=== PATIENT | female | born 1975 | race African-American/Black ===

== ENCOUNTER → 2023-12-06 | Outpatient (CLI) | payer BC ==
[2023-12-06 08:37] LABS: BASOPHILS % 0.9 % (0.0-2.0); DIFFERENTIAL COMMENT 0; HEMATOCRIT. 34.3 % (36.0-48.0); LYMPHOCYTES % 25.4 % (20.0-50.0); MEAN CORPUSCULAR VOLUME 78.1 fL (81.0-99.0); MEAN PLATELET VOLUME 8.8 fl (7.4-10.4); MONOCYTES % 6.1 % (2.0-8.0); NEUTROPHILS % 63.6 % (40.0-76.0); PLATELET 391 x1000/uL (130-400); RED BLOOD CELL COUNT 4.39 mill/uL (4.2-5.4); RED CELL DISTRIBUTION WIDTH 15.8 % (11.6-14.6); WHITE BLOOD COUNT 9.1 x1000/uL (4.5-11.0)
[2023-12-06 08:47] LABS: CHLORIDE 103 mEq/L (98-107); POTASSIUM 3.3 mEq/L (3.5-5.1); SODIUM 136 mEq/L (136-145)
[2023-12-06 08:48] LABS: CALCIUM 9.6 mg/dL (8.7-10.4); CARBON DIOXIDE 28 mEq/L (21-32)
[2023-12-06 08:53] LABS: CREATININE 0.7 mg/dL (0.6-1.0); GLUCOSE 176 mg/dL (70-105); IRON 24 ug/dL (50-170)
[2023-12-06 08:54] LABS: LDL CHOLESTEROL 100 mg/dL (5-100); TRIGLYCERIDE 74 mg/dL (0-150); UREA NITROGEN BLOOD 11 mg/dL (9-23)
[2023-12-06 08:55] LABS: ALANINE AMINOTRANSFERASE 18 IU/L (10-49); ALBUMIN 4.8 g/dL (3.2-4.8); ASPARTATE AMINOTRANSFERASE 22 IU/L (<34); CHOLESTEROL 177 mg/dL (<200); HDL CHOLESTEROL 75 mg/dL (>65)
[2023-12-06 08:56] LABS: BILIRUBIN TOTAL 0.5 mg/dL (0.1-1.0); PROTEIN TOTAL 8.4 g/dL (6.0-8.3); TOTAL IRON BINDING CAPACITY 389 ug/dl (250-425)
[2023-12-06 08:57] LABS: T4 FREE 0.97 ng/dL (0.89-1.76)
[2023-12-06 08:58] LABS: THYROID STIMULATING HORMONE 2.59 uIU/mL (0.55-4.78)
[2023-12-07 13:11] LABS: *CREATININE RANDOM URINE 108.1 mg/dL (Not Estab.); MICROALBUMIN RANDOM URINE 11.3 ug/mL (Not Estab.)
== END | disposition home or self-care (01) ==
LOC: LAB 07:45
PROVIDERS: ATTEND Obstetrics & Gynecology
DX: E11.9 Type 2 diabetes mellitus without complications (principal)
CPT/HCPCS: 36415; 80053; 80061; 82043; 82570; 82728; 83036; 83519; 83540; 83550; 84439; 84443; 84681; 85025

== ENCOUNTER → 2024-01-04 | Outpatient (CLI) | payer BC | END | disposition home or self-care (01) | LOC: MAMMO 08:35 | PROVIDERS: ATTEND Obstetrics & Gynecology | DX: Z12.31 Encounter for screening mammogram for malignant neoplasm of breast (principal) | CPT/HCPCS: 77063; 77067 ==

== ENCOUNTER → 2024-08-19 | Outpatient (CLI) | payer BC | END | disposition home or self-care (01) | LOC: US 09:36 | PROVIDERS: ATTEND Obstetrics & Gynecology | DX: R92.8 Other abnormal and inconclusive findings on diagnostic imaging of breast (principal) | CPT/HCPCS: 76641 ==

== ENCOUNTER 2024-11-06 08:25 | Inpatient (IN) | payer BC ==
[2024-11-06] VITALS (33 sets, daily range): BP systolic 79–158; BP diastolic 52–146; PULSE 85–104; RESP 17–29; TEMP 35.4–36.6; O2SAT 98–100
[~2024-11-06] VITALS: Ht 160.8 cm; Wt 78.0 kg
[2024-11-06] MEDS: SODIUM CHLORIDE 0.9% 1,000 ML IV ONE ×2 (09:01→10:00)
[2024-11-06 09:21] LABS: HEMATOCRIT. 40.8 % (36.0-48.0); HEMOGLOBIN. 11.2 g/dL (12.0-16.0); MEAN CORPUSCULAR HEMOGLOBIN 22.1 pg (28.0-32.0); MEAN CORPUSCULAR HGB CONC 27.5 g/dL (31.0-37.0); MEAN CORPUSCULAR VOLUME 80.3 fL (81.0-99.0); PLATELET 540 x1000/uL (130-400); RED BLOOD CELL COUNT 5.08 mill/uL (4.2-5.4); RED CELL DISTRIBUTION WIDTH 19.1 % (11.6-14.6); WHITE BLOOD COUNT 39.6 x1000/uL (4.5-11.0)
[2024-11-06 09:23] LABS: DIFFERENTIAL COMMENT 1
[2024-11-06 09:34] LABS: CHLORIDE 94 mEq/L (98-107); POTASSIUM 5.1 mEq/L (3.5-5.1); SODIUM 128 mEq/L (136-145)
[2024-11-06 09:35] LABS: CALCIUM 9.8 mg/dL (8.7-10.4)
[2024-11-06 09:40] LABS: UREA NITROGEN BLOOD 21 mg/dL (9-23)
[2024-11-06 09:43] LABS: CREATININE 1.7 mg/dL (0.6-1.0); TROPONIN I HIGH SENSITIVITY < 4 ng/L (3.0-34)
[2024-11-06 09:46] LABS: CARBON DIOXIDE < 10 mEq/L (21-32)
[2024-11-06 09:47] LABS: GLUCOSE 647 mg/dL (70-105)
[2024-11-06 09:55] LABS: BETA HYDROXYBUTYRATE 11.5 mMol/L (0.0-0.3)
[2024-11-06 10:01] LABS: BG BASE EXCESS -31.6 mmol/L (-2.0-3.0); BG DEOXYHEMOGLOBIN 1.4 % (0.0-5.0); BG FRACTION INSPIRED OXYGEN 21; BG HCO3 ACT 1.8 mmol/L (21.0-28.0); BG METHEMOGLOBIN 0.3 % (0.5-1.5); BG OXYGEN SATURATION 98.6 % (94.0-98.0); BG OXYHEMOGLOBIN 97.3 % (94.0-98.0); BG PCO2 12.4 mmHg (32.0-45.0); BG PH 6.787 (7.350-7.450); BG PO2 155.6 mmHg (83.0-108.0); BG SAMPLE SITE RIGHT RADIAL; BG TOTAL HEMOGLOBIN 11.1 g/dL (12.0-16.0); BG VENT MODE ROOM AIR
[2024-11-06] MEDS ORDERED: POTASSIUM CHLORIDE 40 MEQ in SODIUM CHLORIDE 0.9% 230 ML IV PRN ×2 (10:15→10:45)
[2024-11-06] MEDS ORDERED: SODIUM PHOSPHATE 15 MMOL in SODIUM CHLORIDE 0.9% 245 ML IV PRN (10:15)
[2024-11-06] MEDS ORDERED: KCL 20MEQ/100ML PREMIX 100 ML IV PRN (10:15)
[2024-11-06] MEDS ORDERED: DEXTROSE 50% WATER 50ML SYRINGE IV PRN ×2 (10:15→10:45)
[2024-11-06] MEDS ORDERED: DEXT 5%/0.9% NACL 1,000 ML IV SCH (10:15)
[2024-11-06] MEDS ORDERED: MAGNESIUM 2 G PREMIX 50 ML IV PRN (10:15)
[2024-11-06] MEDS ORDERED: SODIUM CHLORIDE 0.9% 1,000 ML IV SCH ×2 (10:15→14:15)
[2024-11-06] MEDS ORDERED: VANCOMYCIN 1G PREMIX 200 ML IV ONE (10:15)
[2024-11-06] MEDS ORDERED: INSULIN REGULAR (DRIP) 100 UNITS in SODIUM CHLORIDE 0.9% 99 ML IV SCH (10:15)
[2024-11-06] MEDS ORDERED: BLOOD SUGAR DIAGNOSTIC STRIP TEST PRN ×2 (10:15→10:45)
[2024-11-06] MEDS ORDERED: BLOOD SUGAR DIAGNOSTIC STRIP TEST SCH (10:15)
[2024-11-06 10:31] LABS: ANISOCYTOSIS 2+; PLATELET ESTIMATE INCREASED
[2024-11-06] MEDS ORDERED: HYDROCODONE/ACETAMINOPHEN 5/325MG TABLET PO PRN (10:45)
[2024-11-06] MEDS ORDERED: LIDOCAINE HCL 1% 10 MG/ML 10ML VIAL ONE (10:49)
[2024-11-06] MEDS ORDERED: NALOXONE HCL 0.4MG/ML VIAL IV PRN (11:00)
[2024-11-06] MEDS: SODIUM CHLORIDE 0.9% (SEPSIS BOLUS) IV ONE (11:01)
[2024-11-06 11:13] LABS: CHLORIDE 98 mEq/L (98-107); POTASSIUM 5.1 mEq/L (3.5-5.1); SODIUM 131 mEq/L (136-145)
[2024-11-06 11:14] LABS: CALCIUM 8.7 mg/dL (8.7-10.4)
[2024-11-06] MEDS: BLOOD SUGAR DIAGNOSTIC STRIP TEST SCH (11:14)
[2024-11-06] MEDS: INSULIN REGULAR 100U/100ML PMX 100 ML IV SCH ×2 (11:14→22:21)
[2024-11-06] MEDS: SODIUM CHLORIDE 0.9% 1,000 ML IV SCH (11:16)
[2024-11-06 11:19] LABS: CREATININE 1.5 mg/dL (0.6-1.0); UREA NITROGEN BLOOD 22 mg/dL (9-23)
[2024-11-06 11:21] LABS: PHOSPHORUS 5.8 mg/dL (2.5-4.9)
[2024-11-06 11:48] LABS: CARBON DIOXIDE < 10 mEq/L (21-32)
[2024-11-06 11:52] LABS: GLUCOSE 551 mg/dL (70-105)
[2024-11-06 12:56] LABS: BG BASE EXCESS -32.4 mmol/L (-2.0-3.0); BG CARBOXYHEMOGLOBIN 1.7 % (0.5-1.5); BG DEOXYHEMOGLOBIN 1.1 % (0.0-5.0); BG FRACTION INSPIRED OXYGEN 21; BG HCO3 ACT 1.4 mmol/L (21.0-28.0); BG METHEMOGLOBIN 0.3 % (0.5-1.5); BG OXYGEN SATURATION 98.9 % (94.0-98.0); BG OXYHEMOGLOBIN 96.9 % (94.0-98.0); BG PH 6.763 (7.350-7.450); BG PO2 154.2 mmHg (83.0-108.0); BG SAMPLE SITE LEFT RADIAL; BG TOTAL HEMOGLOBIN 10.7 g/dL (12.0-16.0); BG VENT MODE ROOM AIR
[2024-11-06] MEDS: VANCOMYCIN 1.25GM/250ML 250 ML IV SCH (13:24)
[2024-11-06] MEDS: ENOXAPARIN 40MG/0.4ML SYR SUBCUT SCH (13:25)
[2024-11-06 13:58] LABS: CHLORIDE 105 mEq/L (98-107); POTASSIUM 4.7 mEq/L (3.5-5.1); SODIUM 136 mEq/L (136-145)
[2024-11-06] MEDS ORDERED: PIPERACILLIN/TAZO 3.375G/100ML 100 ML IV SCH (14:00)
[2024-11-06 14:06] LABS: PHOSPHORUS 4.7 mg/dL (2.5-4.9)
[2024-11-06 14:31] LABS: CARBON DIOXIDE < 10 mEq/L (21-32)
[2024-11-06] MEDS: SODIUM BICARBONATE 8.4% 50MEQ/50ML SYR IV NR (14:32)
[2024-11-06] MEDS ORDERED: SODIUM BICARBONATE 100 MEQ in SODIUM CHLORIDE 0.45% 900 ML IV SCH (15:00)
[2024-11-06] MEDS: KCL 20MEQ/100ML PREMIX 100 ML IV SCH (15:57)
[2024-11-06] MEDS: SODIUM BICARBONATE 50 MEQ in SODIUM CHLORIDE 0.45% 950 ML IV SCH (16:58)
[2024-11-06 17:39] LABS: CALCIUM 7.7 mg/dL (8.7-10.4); CHLORIDE 108 mEq/L (98-107); POTASSIUM 3.5 mEq/L (3.5-5.1); SODIUM 142 mEq/L (136-145)
[2024-11-06 17:44] LABS: CREATININE 1.3 mg/dL (0.6-1.0); GLUCOSE 353 mg/dL (70-105)
[2024-11-06 17:45] LABS: LDL CHOLESTEROL 74 mg/dL (5-100); TRIGLYCERIDE 209 mg/dL (0-150); UREA NITROGEN BLOOD 21 mg/dL (9-23)
[2024-11-06 17:46] LABS: ALANINE AMINOTRANSFERASE 49 IU/L (10-49); ALBUMIN 3.8 g/dL (3.2-4.8); ASPARTATE AMINOTRANSFERASE 175 IU/L (<34); CHOLESTEROL 152 mg/dL (<200); CREATINE KINASE 98 IU/L (34-145); HDL CHOLESTEROL 35 mg/dL (>65)
[2024-11-06 17:47] LABS: BILIRUBIN DIRECT 0.1 mg/dL (<=3.0); BILIRUBIN TOTAL 0.3 mg/dL (0.1-1.0); PHOSPHORUS 2.8 mg/dL (2.5-4.9); PROTEIN TOTAL 6.9 g/dL (6.0-8.3)
[2024-11-06 18:05] LABS: CARBON DIOXIDE < 10 mEq/L (21-32)
[2024-11-06 18:21] LABS: BG BASE EXCESS -26.8 mmol/L (-2.0-3.0); BG CARBOXYHEMOGLOBIN 1.1 % (0.5-1.5); BG DEOXYHEMOGLOBIN 0.7 % (0.0-5.0); BG FRACTION INSPIRED OXYGEN 21; BG HCO3 ACT 2.6 mmol/L (21.0-28.0); BG METHEMOGLOBIN 0.3 % (0.5-1.5); BG OXYGEN SATURATION 99.3 % (94.0-98.0); BG OXYHEMOGLOBIN 97.9 % (94.0-98.0); BG PH 6.992 (7.350-7.450); BG PO2 162.7 mmHg (83.0-108.0); BG SAMPLE SITE LEFT RADIAL; BG TOTAL HEMOGLOBIN 9.7 g/dL (12.0-16.0); BG VENT MODE ROOM AIR
[2024-11-06] MEDS: DEXT 5%/0.9% NACL 1,000 ML IV SCH (18:41)
[2024-11-06] MEDS: KCL 20MEQ/100ML PREMIX 100 ML IV PRN (18:41)
[2024-11-06] MEDS ORDERED: SODIUM CHLORIDE 0.45% 1,000 ML IV SCH (20:00)
[2024-11-06] MEDS ORDERED: INSULIN REGULAR 100U/100ML PMX 100 ML IV SCH (22:15)
[2024-11-06 22:39] LABS: CHLORIDE 111 mEq/L (98-107); POTASSIUM 3.5 mEq/L (3.5-5.1); SODIUM 143 mEq/L (136-145)
[2024-11-06 22:40] LABS: CALCIUM 7.4 mg/dL (8.7-10.4)
[2024-11-06 22:45] LABS: CREATININE 1.2 mg/dL (0.6-1.0); GLUCOSE 255 mg/dL (70-105); UREA NITROGEN BLOOD 22 mg/dL (9-23)
[2024-11-06 22:47] LABS: PHOSPHORUS 1.3 mg/dL (2.5-4.9)
[2024-11-06 22:56] LABS: CARBON DIOXIDE < 10 mEq/L (21-32)
[2024-11-07] VITALS (96 sets, daily range): BP systolic 93–149; BP diastolic 72–103; PULSE 101–121; RESP 13–47; TEMP 34.3–36.9; O2SAT 95–100
[2024-11-07] MEDS: SODIUM PHOSPHATE 15 MMOL in SODIUM CHLORIDE 0.9% 245 ML IV PRN (01:18)
[2024-11-07] MEDS: ONDANSETRON HCL 4MG/2ML INJ IV PRN (03:22)
[2024-11-07 06:33] LABS: CHLORIDE 110 mEq/L (98-107); POTASSIUM 3.7 mEq/L (3.5-5.1); SODIUM 141 mEq/L (136-145)
[2024-11-07 06:34] LABS: CALCIUM 7.4 mg/dL (8.7-10.4)
[2024-11-07 06:39] LABS: CREATININE 1.3 mg/dL (0.6-1.0); GLUCOSE 207 mg/dL (70-105); UREA NITROGEN BLOOD 25 mg/dL (9-23)
[2024-11-07 08:18] LABS: CARBON DIOXIDE < 10 mEq/L (21-32); PHOSPHORUS 0.6 mg/dL (2.5-4.9)
[2024-11-07] MEDS: PANTOPRAZOLE SODIUM 40 MG/VIAL IV SCH (08:24)
[2024-11-07 08:25] LABS: BG BASE EXCESS -15.1 mmol/L (-2.0-3.0); BG CARBOXYHEMOGLOBIN 0.3 % (0.5-1.5); BG DEOXYHEMOGLOBIN 5.3 % (0.0-5.0); BG FRACTION INSPIRED OXYGEN 21; BG HCO3 ACT 8.6 mmol/L (21.0-28.0); BG METHEMOGLOBIN 0.3 % (0.5-1.5); BG OXYGEN SATURATION 94.7 % (94.0-98.0); BG OXYHEMOGLOBIN 94.1 % (94.0-98.0); BG PCO2 16.1 mmHg (32.0-45.0); BG PH 7.346 (7.350-7.450); BG PO2 68.9 mmHg (83.0-108.0); BG SAMPLE SITE RIGHT RADIAL; BG TOTAL HEMOGLOBIN 9.3 g/dL (12.0-16.0); BG VENT MODE ROOM AIR
[2024-11-07] MEDS ORDERED: SODIUM BICARBONATE 8.4% 50MEQ/50ML SYR IV SCH (08:45)
[2024-11-07] MEDS: ENOXAPARIN 30MG/0.3ML SYR SUBCUT SCH (08:55)
[2024-11-07] MEDS: POTASSIUM PHOSPHATE 20 MMOL in DEXT 5% WATER 243.3333 ML IV ONE (09:21)
[2024-11-07 09:29] LABS: HEMATOCRIT. 30.9 % (36.0-48.0); HEMOGLOBIN. 9.5 g/dL (12.0-16.0); MEAN CORPUSCULAR HEMOGLOBIN 22.2 pg (28.0-32.0); MEAN CORPUSCULAR HGB CONC 30.8 g/dL (31.0-37.0); MEAN CORPUSCULAR VOLUME 72.1 fL (81.0-99.0); MEAN PLATELET VOLUME 8.8 fl (7.4-10.4); PLATELET 264 x1000/uL (130-400); RED BLOOD CELL COUNT 4.29 mill/uL (4.2-5.4); RED CELL DISTRIBUTION WIDTH 18.8 % (11.6-14.6); WHITE BLOOD COUNT 21.4 x1000/uL (4.5-11.0)
[2024-11-07 09:31] LABS: DIFFERENTIAL COMMENT 1
[2024-11-07 09:32] LABS: CHLORIDE 117 mEq/L (98-107); POTASSIUM 3.3 mEq/L (3.5-5.1); SODIUM 143 mEq/L (136-145)
[2024-11-07 09:33] LABS: CALCIUM 7.5 mg/dL (8.7-10.4); CARBON DIOXIDE 12 mEq/L (21-32)
[2024-11-07 09:38] LABS: CREATININE 1.5 mg/dL (0.6-1.0); GLUCOSE 197 mg/dL (70-105); UREA NITROGEN BLOOD 27 mg/dL (9-23)
[2024-11-07 09:58] LABS: PHOSPHORUS < 0.3 mg/dL (2.5-4.9)
[2024-11-07 11:21] LABS: CLARITY URINE CLEAR (CLEAR); COLOR URINE YELLOW (YELLOW); GLUCOSE URINE 3+ (NEGATIVE); KETONES URINE 3+ (NEGATIVE); LEUKOCYTE ESTERASE URINE NEGATIVE (NEGATIVE); NITRITE URINE NEGATIVE (NEGATIVE); OCCULT BLOOD URINE 3+ (NEGATIVE); PROTEIN URINE 1+ (NEGATIVE); SPECIFIC GRAVITY URINE 1.013 (1.005-1.030); UROBILINOGEN URINE 0.2 E.U./dL (0.2-1.0)
[2024-11-07] MEDS: PIPERACILLIN/TAZO 3.375G/50ML 50 ML IV ONE (11:36)
[2024-11-07] MEDS: PIPERACILLIN/TAZO 3.375G/50ML IV SCH (11:38)
[2024-11-07 11:39] LABS: BACTERIA URINE 1+; YEAST URINE NONE SEEN
[2024-11-07 11:40] LABS: SQUAMOUS EPITHELIAL CELL URINE NONE SEEN /lpf (RARE/1+)
[2024-11-07 12:05] LABS: *AMPHETAMINES SCREEN URINE NEGATIVE (NEGATIVE); *BARBITURATES SCREEN URINE NEGATIVE (NEGATIVE); *BENZODIAZEPINES SCREEN URINE NEGATIVE (NEGATIVE); *COCAINE SCREEN URINE NEGATIVE (NEGATIVE); CANNABINOID URINE SCREEN NEGATIVE (NEGATIVE); METHADONE URINE SCREEN NEGATIVE (NEGATIVE); OPIATES URINE SCREEN NEGATIVE (NEGATIVE); PHENCYCLIDINE URINE SCREEN NEGATIVE (NEGATIVE)
[2024-11-07 12:06] LABS: ECSTASY MDMA SCREEN URINE NEGATIVE (NEGATIVE)
[2024-11-07 12:13] LABS: PLATELET ESTIMATE NORMAL
[2024-11-07 12:14] LABS: ANISOCYTOSIS 2+; HYPOCHROMASIA 1+; MICROCYTOSIS 2+
[2024-11-07 12:45] LABS: CARBON DIOXIDE 12 mEq/L (21-32); CHLORIDE 117 mEq/L (98-107); POTASSIUM 3.1 mEq/L (3.5-5.1); SODIUM 144 mEq/L (136-145)
[2024-11-07 12:50] LABS: CREATININE 1.6 mg/dL (0.6-1.0)
[2024-11-07 12:51] LABS: GLUCOSE 156 mg/dL (70-105); UREA NITROGEN BLOOD 28 mg/dL (9-23)
[2024-11-07 13:03] LABS: PHOSPHORUS < 0.3 mg/dL (2.5-4.9)
[2024-11-07] MEDS: MAGNESIUM 2 G PREMIX 50 ML IV PRN (14:25)
[2024-11-07] MEDS: VANCOMYCIN 750MG PREMIX 150 ML IV SCH (15:18)
[2024-11-07] MEDS: ACETAMINOPHEN 325MG TABLET PO PRN (15:50)
[2024-11-07 18:45] LABS: CHLORIDE 117 mEq/L (98-107); POTASSIUM 3.6 mEq/L (3.5-5.1); SODIUM 144 mEq/L (136-145)
[2024-11-07 18:46] LABS: CALCIUM 6.9 mg/dL (8.7-10.4); CARBON DIOXIDE 12 mEq/L (21-32)
[2024-11-07 18:51] LABS: CREATININE 1.8 mg/dL (0.6-1.0); GLUCOSE 230 mg/dL (70-105); UREA NITROGEN BLOOD 28 mg/dL (9-23)
[2024-11-07 19:28] LABS: PHOSPHORUS 0.7 mg/dL (2.5-4.9)
[2024-11-07 21:59] LABS: CHLORIDE 119 mEq/L (98-107); POTASSIUM 3.7 mEq/L (3.5-5.1); SODIUM 144 mEq/L (136-145)
[2024-11-07 22:00] LABS: CALCIUM 7.3 mg/dL (8.7-10.4)
[2024-11-07 22:04] LABS: GLUCOSE 279 mg/dL (70-105)
[2024-11-07 22:05] LABS: UREA NITROGEN BLOOD 26 mg/dL (9-23)
[2024-11-07 22:07] LABS: PHOSPHORUS 1.1 mg/dL (2.5-4.9)
[2024-11-07 22:31] LABS: CARBON DIOXIDE < 10 mEq/L (21-32)
[2024-11-07] MEDS: SODIUM BICARBONATE 8.4% 50MEQ/50ML SYR IV SCH (23:30)
[2024-11-08] VITALS (70 sets, daily range): BP systolic 98–161; BP diastolic 68–107; PULSE 101–117; RESP 11–37; TEMP 36.6–36.9; O2SAT 94–99
[2024-11-08 11:50] LABS: HEMATOCRIT 25.3 % (36.0-48.0); HEMOGLOBIN 8.2 g/dL (12.0-16.0); MEAN CORPUSCULAR HEMOGLOBIN 22.2 pg (28.0-32.0); MEAN CORPUSCULAR HGB CONC 32.3 g/dL (31.0-37.0); MEAN CORPUSCULAR VOLUME 68.8 fL (81.0-99.0); PLATELET 227 x1000/uL (130-400); RED BLOOD CELL COUNT 3.67 mill/uL (4.2-5.4); WHITE BLOOD COUNT 23.5 x1000/uL (4.5-11.0)
[2024-11-08 12:01] LABS: CALCIUM 6.2 mg/dL (8.7-10.4)
[2024-11-08 12:05] LABS: CREATININE 2.3 mg/dL (0.6-1.0)
[2024-11-08 12:19] LABS: POTASSIUM 2.6 mEq/L (3.5-5.1)
[2024-11-08] MEDS: KCL 20MEQ/100ML PREMIX 100 ML IV SCH (12:36)
[2024-11-08] MEDS: SODIUM PHOSPHATE 15 MMOL in DEXT 5% WATER 245 ML IV NR (12:59)
[2024-11-08 18:54] LABS: HEMATOCRIT 29.4 % (36.0-48.0); HEMOGLOBIN 8.9 g/dL (12.0-16.0); MEAN CORPUSCULAR HGB CONC 30.3 g/dL (31.0-37.0); MEAN CORPUSCULAR VOLUME 72.6 fL (81.0-99.0); PLATELET 231 x1000/uL (130-400); RED BLOOD CELL COUNT 4.06 mill/uL (4.2-5.4); RED CELL DISTRIBUTION WIDTH 19.7 % (11.6-14.6); WHITE BLOOD COUNT 24.8 x1000/uL (4.5-11.0)
[2024-11-08 19:01] LABS: POTASSIUM 3.2 mEq/L (3.5-5.1)
[2024-11-08 19:02] LABS: CALCIUM 6.4 mg/dL (8.7-10.4)
[2024-11-08 19:06] LABS: CREATININE 2.6 mg/dL (0.6-1.0)
[2024-11-08 19:59] LABS: PHOSPHORUS 2.2 mg/dL (2.5-4.9)
[2024-11-08] MEDS: DOCUSATE SODIUM 250MG CAPSULE PO PRN (21:15)
[2024-11-08] MEDS: VANCOMYCIN 1GM/200ML PMX (BAXTER) IV SCH (21:16)
[2024-11-08] MEDS: METHYLPREDNISOLONE SOD SUCC 125MG/2ML (ACT-O-VIAL) IV SCH (21:19)
[2024-11-08 23:01] LABS: CHLORIDE 121 mEq/L (98-107); POTASSIUM 3.7 mEq/L (3.5-5.1); SODIUM 146 mEq/L (136-145)
[2024-11-08 23:02] LABS: CARBON DIOXIDE 11 mEq/L (21-32)
[2024-11-08 23:07] LABS: CREATININE 2.5 mg/dL (0.6-1.0); GLUCOSE 305 mg/dL (70-105); UREA NITROGEN BLOOD 21 mg/dL (9-23)
[2024-11-08 23:09] LABS: ALANINE AMINOTRANSFERASE 95 IU/L (10-49); ALBUMIN 2.9 g/dL (3.2-4.8); ASPARTATE AMINOTRANSFERASE 101 IU/L (<34); BILIRUBIN TOTAL 0.4 mg/dL (0.1-1.0)
[2024-11-08 23:10] LABS: PROTEIN TOTAL 5.3 g/dL (6.0-8.3)
[2024-11-08 23:31] LABS: PHOSPHORUS 1.8 mg/dL (2.5-4.9)
[2024-11-09] VITALS (95 sets, daily range): BP systolic 94–158; BP diastolic 65–135; PULSE 100–122; RESP 0–36; TEMP 36.4–37.1; O2SAT 63–100
[2024-11-09] MEDS: CALCIUM GLUCONATE 1GM PREMIX 50 ML IV SCH (00:14)
[2024-11-09] MEDS: IPRATROPIUM/ALBUTEROL 0.5-3(2.5)MG/3ML NEB NEB PRN (01:10)
[2024-11-09] MEDS: FUROSEMIDE 40MG/4ML VIAL IVP SCH (01:26)
[2024-11-09] MEDS: MAGNESIUM 2 G PREMIX 50 ML IV SCH (01:27)
[2024-11-09 01:34] LABS: BG BASE EXCESS -17.3 mmol/L (-2.0-3.0); BG CARBOXYHEMOGLOBIN 1.2 % (0.5-1.5); BG DEOXYHEMOGLOBIN 1.7 % (0.0-5.0); BG METHEMOGLOBIN 0.3 % (0.5-1.5); BG OXYGEN SATURATION 98.3 % (94.0-98.0); BG OXYHEMOGLOBIN 96.8 % (94.0-98.0); BG PCO2 18.8 mmHg (32.0-45.0); BG PH 7.249 (7.350-7.450); BG PO2 115.2 mmHg (83.0-108.0); BG SAMPLE SITE LEFT RADIAL; BG TOTAL HEMOGLOBIN 9.5 g/dL (12.0-16.0); BG VENT MODE MASK - SIMPLE
[2024-11-09] MEDS: POTASSIUM PHOSPHATE 20 MMOL in DEXT 5% WATER 243.3333 ML IV SCH (01:49)
[2024-11-09] MEDS: DEXT 5%/0.45% NACL 1000ML 1,000 ML IV SCH (01:50)
[2024-11-09 03:18] LABS: HEMATOCRIT. 29.2 % (36.0-48.0); HEMOGLOBIN. 9.1 g/dL (12.0-16.0); MEAN CORPUSCULAR HEMOGLOBIN 21.8 pg (28.0-32.0); MEAN CORPUSCULAR HGB CONC 31.1 g/dL (31.0-37.0); MEAN CORPUSCULAR VOLUME 70.1 fL (81.0-99.0); MEAN PLATELET VOLUME 8.2 fl (7.4-10.4); PLATELET 212 x1000/uL (130-400); RED BLOOD CELL COUNT 4.16 mill/uL (4.2-5.4); WHITE BLOOD COUNT 24.3 x1000/uL (4.5-11.0)
[2024-11-09 03:19] LABS: DIFFERENTIAL COMMENT 1
[2024-11-09 03:27] LABS: CARBON DIOXIDE 12 mEq/L (21-32); CHLORIDE 122 mEq/L (98-107); POTASSIUM 3.8 mEq/L (3.5-5.1); SODIUM 147 mEq/L (136-145)
[2024-11-09 03:28] LABS: CALCIUM 6.9 mg/dL (8.7-10.4)
[2024-11-09 03:33] LABS: CREATININE 2.8 mg/dL (0.6-1.0); GLUCOSE 244 mg/dL (70-105); UREA NITROGEN BLOOD 25 mg/dL (9-23)
[2024-11-09 03:34] LABS: ALANINE AMINOTRANSFERASE 115 IU/L (10-49); ASPARTATE AMINOTRANSFERASE 141 IU/L (<34)
[2024-11-09 03:35] LABS: ALBUMIN 3.6 g/dL (3.2-4.8); BILIRUBIN TOTAL 0.4 mg/dL (0.1-1.0); PHOSPHORUS 2.3 mg/dL (2.5-4.9); PROTEIN TOTAL 6.2 g/dL (6.0-8.3)
[2024-11-09 03:40] LABS: LACTIC ACID 3.1 mmol/L (0.4-2.0)
[2024-11-09] MEDS ORDERED: POTASSIUM PHOSPHATE 15 MMOL in DEXT 5% WATER 245 ML IV ONE (08:30)
[2024-11-09] MEDS: SODIUM BICARBONATE 100 MEQ in DEXTROSE 5% WATER 900 ML IV SCH (08:56)
[2024-11-09] MEDS: IPRATROPIUM BROMIDE (0.02%) 0.5MG/2.5ML NEB HHN SCH (10:11)
[2024-11-09 10:51] LABS: PHOSPHORUS 3.8 mg/dL (2.5-4.9)
[2024-11-09 11:43] LABS: POTASSIUM 4.3 mEq/L (3.5-5.1)
[2024-11-09 11:44] LABS: CALCIUM 6.4 mg/dL (8.7-10.4)
[2024-11-09 11:49] LABS: CREATININE 2.7 mg/dL (0.6-1.0)
[2024-11-09 12:48] LABS: CHLORIDE 118 mEq/L (98-107); POTASSIUM 4.2 mEq/L (3.5-5.1); SODIUM 144 mEq/L (136-145)
[2024-11-09 12:49] LABS: CALCIUM 6.3 mg/dL (8.7-10.4); CARBON DIOXIDE 14 mEq/L (21-32)
[2024-11-09 12:54] LABS: CREATININE 2.7 mg/dL (0.6-1.0); GLUCOSE 186 mg/dL (70-105)
[2024-11-09 12:55] LABS: UREA NITROGEN BLOOD 24 mg/dL (9-23)
[2024-11-09 12:57] LABS: PHOSPHORUS 3.7 mg/dL (2.5-4.9)
[2024-11-09 13:34] LABS: INFLUENZA TYPE A Presumptive Negative (Pres. Neg.); INFLUENZA TYPE B Presumptive Negative (Pres. Neg.)
[2024-11-09 13:35] LABS: RESPIRATORY SYNCYTIAL VIRUS Not Detected (Not Detectd)
[2024-11-09 14:32] LABS: ANISOCYTOSIS 2+; MICROCYTOSIS 2+; PLATELET ESTIMATE NORMAL
[2024-11-09 16:15] LABS: CHLORIDE 116 mEq/L (98-107); SODIUM 143 mEq/L (136-145)
[2024-11-09 16:17] LABS: CARBON DIOXIDE 13 mEq/L (21-32)
[2024-11-09 16:24] LABS: PHOSPHORUS 3.6 mg/dL (2.5-4.9)
[2024-11-09 21:18] LABS: CHLORIDE 115 mEq/L (98-107); POTASSIUM 3.6 mEq/L (3.5-5.1); SODIUM 143 mEq/L (136-145)
[2024-11-09 21:19] LABS: CARBON DIOXIDE 15 mEq/L (21-32)
[2024-11-09 21:26] LABS: PHOSPHORUS 2.9 mg/dL (2.5-4.9)
[2024-11-09] MEDS ORDERED: POTASSIUM CHLORIDE 40 MEQ in SODIUM CHLORIDE 0.9% 230 ML IV PRN (23:45)
[2024-11-09] MEDS ORDERED: MAGNESIUM 2 G PREMIX 50 ML IV PRN (23:45)
[2024-11-09] MEDS ORDERED: SODIUM PHOSPHATE 15 MMOL in SODIUM CHLORIDE 0.9% 245 ML IV PRN (23:45)
[2024-11-09] MEDS: METHYLPREDNISOLONE SOD SUCC 40MG/ML (ACT-O-VIAL) IV SCH (23:48)
[2024-11-10] VITALS (80 sets, daily range): BP systolic 107–140; BP diastolic 74–101; PULSE 94–119; RESP 0–30; TEMP 36.2–37.6; O2SAT 95–100
[2024-11-10] MEDS: KCL 20MEQ/100ML PREMIX 100 ML IV PRN (00:01)
[2024-11-10 00:33] LABS: HEMATOCRIT 24.4 % (36.0-48.0); HEMOGLOBIN 7.7 g/dL (12.0-16.0); MEAN CORPUSCULAR HEMOGLOBIN 21.9 pg (28.0-32.0); MEAN CORPUSCULAR HGB CONC 31.6 g/dL (31.0-37.0); MEAN CORPUSCULAR VOLUME 69.2 fL (81.0-99.0); PLATELET 179 x1000/uL (130-400); RED BLOOD CELL COUNT 3.52 mill/uL (4.2-5.4); RED CELL DISTRIBUTION WIDTH 19.9 % (11.6-14.6); WHITE BLOOD COUNT 18.4 x1000/uL (4.5-11.0)
[2024-11-10 00:51] LABS: PHOSPHORUS 2.7 mg/dL (2.5-4.9)
[2024-11-10 01:20] LABS: POTASSIUM 3.8 mEq/L (3.5-5.1)
[2024-11-10 03:30] LABS: CHLORIDE 115 mEq/L (98-107); POTASSIUM 3.8 mEq/L (3.5-5.1); SODIUM 143 mEq/L (136-145)
[2024-11-10 03:32] LABS: CARBON DIOXIDE 14 mEq/L (21-32)
[2024-11-10 05:29] LABS: HEMATOCRIT 25.4 % (36.0-48.0); HEMOGLOBIN 7.8 g/dL (12.0-16.0); MEAN CORPUSCULAR HEMOGLOBIN 22.2 pg (28.0-32.0); MEAN CORPUSCULAR HGB CONC 30.6 g/dL (31.0-37.0); MEAN CORPUSCULAR VOLUME 72.4 fL (81.0-99.0); PLATELET 173 x1000/uL (130-400); RED CELL DISTRIBUTION WIDTH 20.2 % (11.6-14.6); WHITE BLOOD COUNT 15.2 x1000/uL (4.5-11.0)
[2024-11-10 05:57] LABS: PHOSPHORUS 3.1 mg/dL (2.5-4.9)
[2024-11-10 07:53] LABS: CHLORIDE 115 mEq/L (98-107); SODIUM 141 mEq/L (136-145)
[2024-11-10 07:54] LABS: CARBON DIOXIDE 16 mEq/L (21-32)
[2024-11-10] MEDS ORDERED: DEXTROSE 50% WATER 50ML SYRINGE IV PRN (08:45)
[2024-11-10] MEDS: INSULIN GLARGINE 100 UNITS/ML SUBCUT SCH (09:23)
[2024-11-10] MEDS: INSULIN LISPRO 100 UNITS/ML SUBCUT SCH (09:24)
[2024-11-10 10:50] LABS: HEMATOCRIT. 25.6 % (36.0-48.0); HEMOGLOBIN. 8.1 g/dL (12.0-16.0); MEAN CORPUSCULAR HEMOGLOBIN 22.2 pg (28.0-32.0); MEAN CORPUSCULAR HGB CONC 31.6 g/dL (31.0-37.0); MEAN CORPUSCULAR VOLUME 70.2 fL (81.0-99.0); MEAN PLATELET VOLUME 9.3 fl (7.4-10.4); PLATELET 175 x1000/uL (130-400); RED BLOOD CELL COUNT 3.65 mill/uL (4.2-5.4); RED CELL DISTRIBUTION WIDTH 19.7 % (11.6-14.6); WHITE BLOOD COUNT 13.7 x1000/uL (4.5-11.0)
[2024-11-10 11:07] LABS: DIFFERENTIAL COMMENT 1
[2024-11-10 11:11] LABS: CHLORIDE 111 mEq/L (98-107); POTASSIUM 4.1 mEq/L (3.5-5.1); SODIUM 141 mEq/L (136-145)
[2024-11-10 11:12] LABS: CALCIUM 6.4 mg/dL (8.7-10.4); CARBON DIOXIDE 17 mEq/L (21-32)
[2024-11-10 11:17] LABS: CREATININE 3.2 mg/dL (0.6-1.0); GLUCOSE 177 mg/dL (70-105); UREA NITROGEN BLOOD 25 mg/dL (9-23)
[2024-11-10 11:19] LABS: PHOSPHORUS 3.5 mg/dL (2.5-4.9)
[2024-11-10] MEDS: SODIUM BICARBONATE 75 MEQ in SODIUM CHLORIDE 0.45% 925 ML IV SCH (12:01)
[2024-11-10 12:22] LABS: HEMATOCRIT 26.2 % (36.0-48.0); HEMOGLOBIN 8.2 g/dL (12.0-16.0); MEAN CORPUSCULAR HGB CONC 31.4 g/dL (31.0-37.0); MEAN CORPUSCULAR VOLUME 70.1 fL (81.0-99.0); PLATELET 179 x1000/uL (130-400); RED BLOOD CELL COUNT 3.73 mill/uL (4.2-5.4); WHITE BLOOD COUNT 13.2 x1000/uL (4.5-11.0)
[2024-11-10 12:36] LABS: PHOSPHORUS 3.4 mg/dL (2.5-4.9)
[2024-11-10 13:22] LABS: ANISOCYTOSIS 2+; HYPOCHROMASIA 1+; PLATELET ESTIMATE NORMAL
[2024-11-10 13:23] LABS: MICROCYTOSIS 2+
[2024-11-10] MEDS ORDERED: GUAIFENESIN-DM 200MG-20MG/10ML UDC PO PRN (17:30)
[2024-11-10 18:07] LABS: HEMATOCRIT 25.1 % (36.0-48.0); HEMOGLOBIN 8.2 g/dL (12.0-16.0); MEAN CORPUSCULAR HEMOGLOBIN 22.8 pg (28.0-32.0); MEAN CORPUSCULAR HGB CONC 32.5 g/dL (31.0-37.0); MEAN CORPUSCULAR VOLUME 70.2 fL (81.0-99.0); PLATELET 174 x1000/uL (130-400); RED BLOOD CELL COUNT 3.57 mill/uL (4.2-5.4); RED CELL DISTRIBUTION WIDTH 19.8 % (11.6-14.6); WHITE BLOOD COUNT 13.6 x1000/uL (4.5-11.0)
[2024-11-10] MEDS: VANCOMYCIN 750MG PMX (XELLIA) 150 ML IV SCH (20:10)
[2024-11-10] MEDS: BUDESONIDE 0.5MG/2ML NEB HHN SCH (21:08)
[2024-11-10 21:17] LABS: HEMATOCRIT 23.5 % (36.0-48.0); HEMOGLOBIN 7.5 g/dL (12.0-16.0); MEAN CORPUSCULAR HEMOGLOBIN 22.1 pg (28.0-32.0); MEAN CORPUSCULAR HGB CONC 32.1 g/dL (31.0-37.0); MEAN CORPUSCULAR VOLUME 68.7 fL (81.0-99.0); PLATELET 165 x1000/uL (130-400); RED BLOOD CELL COUNT 3.42 mill/uL (4.2-5.4); RED CELL DISTRIBUTION WIDTH 19.5 % (11.6-14.6); WHITE BLOOD COUNT 12.6 x1000/uL (4.5-11.0)
[2024-11-11] VITALS (10 sets, daily range): BP systolic 124–143; BP diastolic 86–90; PULSE 80–102; RESP 14–20; TEMP 36.1–36.7; O2SAT 92–100
[2024-11-11 06:51] LABS: POTASSIUM 3.5 mEq/L (3.5-5.1)
[2024-11-11 06:53] LABS: CALCIUM 6.4 mg/dL (8.7-10.4)
[2024-11-11 06:57] LABS: CREATININE 3.3 mg/dL (0.6-1.0)
[2024-11-11 07:47] LABS: BASOPHILS % 0.6 % (0.0-2.0); EOSINOPHILS % 3.5 % (0.0-5.0); HEMATOCRIT. 24.3 % (36.0-48.0); HEMOGLOBIN. 7.8 g/dL (12.0-16.0); LYMPHOCYTES % 23.8 % (20.0-50.0); MEAN CORPUSCULAR HEMOGLOBIN 22.1 pg (28.0-32.0); MEAN CORPUSCULAR HGB CONC 32.2 g/dL (31.0-37.0); MEAN CORPUSCULAR VOLUME 68.6 fL (81.0-99.0); MEAN PLATELET VOLUME 9.1 fl (7.4-10.4); MONOCYTES % 12.2 % (2.0-8.0); NEUTROPHILS % 59.9 % (40.0-76.0); PLATELET 170 x1000/uL (130-400); RED BLOOD CELL COUNT 3.54 mill/uL (4.2-5.4); RED CELL DISTRIBUTION WIDTH 19.6 % (11.6-14.6); WHITE BLOOD COUNT 9.1 x1000/uL (4.5-11.0)
[2024-11-11 08:06] LABS: DIFFERENTIAL COMMENT 1
[2024-11-11 08:07] LABS: ADD RBC MORPHOLOGY NO
[2024-11-12] VITALS (11 sets, daily range): BP systolic 119–157; BP diastolic 74–94; PULSE 81–92; RESP 16–21; TEMP 35.6–36.6; O2SAT 95–100
[2024-11-12 07:00] LABS: POTASSIUM 3.5 mEq/L (3.5-5.1)
[2024-11-12 07:01] LABS: CALCIUM 6.8 mg/dL (8.7-10.4)
[2024-11-12 07:05] LABS: CREATININE 3.6 mg/dL (0.6-1.0)
[2024-11-12] MEDS: FUROSEMIDE 40MG/4ML VIAL IVP SCH (11:55)
[2024-11-12] MEDS: POTASSIUM CHLORIDE 20MEQ TABLET SR PO SCH (11:56)
[2024-11-13] VITALS (11 sets, daily range): BP systolic 125–148; BP diastolic 74–95; PULSE 71–91; RESP 15–19; TEMP 36.1–36.8; O2SAT 97–100
[2024-11-13] MEDS: CEFTRIAXONE 1GM/50ML 50 ML IV SCH (06:01)
[2024-11-13 08:05] LABS: POTASSIUM 3.6 mEq/L (3.5-5.1)
[2024-11-13 08:06] LABS: CALCIUM 7.6 mg/dL (8.7-10.4)
[2024-11-13 08:11] LABS: CREATININE 3.6 mg/dL (0.6-1.0)
[2024-11-13] MEDS: FUROSEMIDE 40MG/4ML VIAL IVP SCH (08:31)
[2024-11-14] VITALS (8 sets, daily range): BP systolic 121–159; BP diastolic 70–89; PULSE 70–91; RESP 18–19; TEMP 36.4–36.7; O2SAT 98–100
[2024-11-14] MEDS: HYDROCODONE/ACETAMINOPHEN 5/325MG TABLET PO PRN (00:14)
[2024-11-14 07:50] LABS: BASOPHILS % 0.9 % (0.0-2.0); EOSINOPHILS % 4.8 % (0.0-5.0); HEMATOCRIT. 24.7 % (36.0-48.0); HEMOGLOBIN. 7.9 g/dL (12.0-16.0); LYMPHOCYTES % 25.6 % (20.0-50.0); MEAN CORPUSCULAR HEMOGLOBIN 22.1 pg (28.0-32.0); MEAN CORPUSCULAR HGB CONC 32.1 g/dL (31.0-37.0); MEAN CORPUSCULAR VOLUME 68.7 fL (81.0-99.0); MEAN PLATELET VOLUME 8.3 fl (7.4-10.4); MONOCYTES % 12.5 % (2.0-8.0); NEUTROPHILS % 56.2 % (40.0-76.0); PLATELET 281 x1000/uL (130-400); RED CELL DISTRIBUTION WIDTH 19.6 % (11.6-14.6)
[2024-11-14 08:02] LABS: POTASSIUM 3.8 mEq/L (3.5-5.1)
[2024-11-14 08:08] LABS: CREATININE 3.5 mg/dL (0.6-1.0)
[2024-11-14 08:19] LABS: ADD RBC MORPHOLOGY NO; DIFFERENTIAL COMMENT 1
[2024-11-14 11:20] LABS: IRON 62 ug/dL (50-170)
[2024-11-14 11:23] LABS: TOTAL IRON BINDING CAPACITY 273 ug/dl (250-425)
[2024-11-14 11:31] LABS: FERRITIN 75 ng/mL (10-291)
[2024-11-14 11:41] LABS: HEPATITIS B SURFACE ANTIGEN NEGATIVE (Negative)
[2024-11-14 12:02] LABS: HEPATITIS A AB IGM NEGATIVE (Negative); HEPATITIS B CORE AB IGM NEGATIVE (Negative)
[2024-11-14 12:03] LABS: HEPATITIS C AB NON REACTIVE (Neg) (Negative)
[2024-11-14] MEDS ORDERED: FURO-151 MT (16:49)
[2024-11-14] MEDS ORDERED: INSU100I28 SQ (16:49)
[2024-11-14] MEDS ORDERED: AMLO5TAB5 MT (16:50)
== END 2024-11-14 17:40 | disposition home or self-care (01) | DRG 871 ==
LOC: ER 08:25 → MICUSO 10:40 → EDBEDREQ 10:42 → EDBEDREQTM 10:42 → 7WST 11-10 22:45
PROVIDERS: ADMIT Internal Medicine; ATTEND Internal Medicine
PROC: 02HV33Z Insertion of Infusion Device into Superior Vena Cava, Percutaneous Approach (ICD-10-PCS; principal; 2024-11-06)
PROC: B548ZZA Ultrasonography of Superior Vena Cava, Guidance (ICD-10-PCS; 2024-11-06)
DX: A41.9 Sepsis, unspecified organism (principal); E11.10 Type 2 diabetes mellitus with ketoacidosis without coma; G92.8 Other toxic encephalopathy; N17.0 Acute kidney failure with tubular necrosis; J18.9 Pneumonia, unspecified organism; E87.0 Hyperosmolality and hypernatremia; E87.1 Hypo-osmolality and hyponatremia; R65.20 Severe sepsis without septic shock; Z20.822 Contact with and (suspected) exposure to COVID-19; E87.6 Hypokalemia; E83.39 Other disorders of phosphorus metabolism; E83.42 Hypomagnesemia; D50.9 Iron deficiency anemia, unspecified; D75.839 Thrombocytosis, unspecified; N18.9 Chronic kidney disease, unspecified; E83.41 Hypermagnesemia; E83.51 Hypocalcemia; E78.1 Pure hyperglyceridemia; G43.909 Migraine, unspecified, not intractable, without status migrainosus; Z79.4 Long term (current) use of insulin
CPT/HCPCS: 36415; 36573; 36600; 71045; 76770; 80048; 80051; 80053; 80061; 80076; 80202; 80305; 81003; 82010; 82375; 82550; 82728; 82805; 82962; 83036; 83540; 83550; 83605; 83735; 83880; 83930; 83970; 84100; 84132; 84145; 84484; 85025; 85027; 86038; 86705; 86709; 87070; 87340; 87420; 87426; 87804; 93005; 93970; 94070; 94640; 94664; 94760; 97116; 97162; 98960; 99291; A4606; A6261; C1725; J0610; J0696; J1650; J1815; J1940; J2003; J2405; J2470; J2543; J2919; J3370; J3475; J3480; J3490; J7030; J7042; J7050; J7060; J7070; J7626

== ENCOUNTER → 2025-01-22 | Outpatient (CLI) | payer BC ==
[~2025-01-22] MED LIST: AMLO5TAB6 MT; FURO-151 MT; INSU100I28 SQ
[2025-01-22 10:25] LABS: BASOPHILS % 2.4 % (0.0-2.0); EOSINOPHILS % 1.1 % (0.0-5.0); HEMATOCRIT. 30.4 % (36.0-48.0); HEMOGLOBIN. 10.0 g/dL (12.0-16.0); LYMPHOCYTES % 32.6 % (20.0-50.0); MEAN PLATELET VOLUME 7.8 fl (7.4-10.4); MONOCYTES % 5.6 % (2.0-8.0); NEUTROPHILS % 58.3 % (40.0-76.0); PLATELET 452 x1000/uL (130-400); RED BLOOD CELL COUNT 3.95 mill/uL (4.2-5.4); RED CELL DISTRIBUTION WIDTH 17.6 % (11.6-14.6)
[2025-01-22 10:33] LABS: CLARITY URINE CLEAR (CLEAR); COLOR URINE YELLOW (YELLOW); GLUCOSE URINE NEGATIVE (NEGATIVE); KETONES URINE NEGATIVE (NEGATIVE); LEUKOCYTE ESTERASE URINE 1+ (NEGATIVE); NITRITE URINE NEGATIVE (NEGATIVE); OCCULT BLOOD URINE NEGATIVE (NEGATIVE); PH URINE 6.5 (4.5-8.0); PROTEIN URINE NEGATIVE (NEGATIVE); SPECIFIC GRAVITY URINE 1.016 (1.005-1.030); UROBILINOGEN URINE 0.2 E.U./dL (0.2-1.0)
[2025-01-22 10:54] LABS: CREATININE 0.8 mg/dL (0.6-1.0)
[2025-01-22 10:55] LABS: ASPARTATE AMINOTRANSFERASE 19 IU/L (<34); TRIGLYCERIDE 175 mg/dL (0-150); UREA NITROGEN BLOOD 12 mg/dL (9-23)
[2025-01-22 10:56] LABS: BILIRUBIN TOTAL 0.6 mg/dL (0.1-1.0); LDL CHOLESTEROL 88 mg/dL (5-100)
[2025-01-22 10:57] LABS: PHOSPHORUS 4.7 mg/dL (2.5-4.9)
[2025-01-22 10:58] LABS: T4 FREE 1.25 ng/dL (0.89-1.76)
[2025-01-22 11:05] LABS: B-HCG QUANTITATIVE < 1 mIU/mL (<6); BACTERIA URINE FEW; PROTEIN TOTAL 8.3 g/dL (6.0-8.3); RBC URINE 0-2 /hpf (0-2); SQUAMOUS EPITHELIAL CELL URINE 1+ /lpf (RARE/1+); WBC URINE 0-2 /hpf (0-2); YEAST URINE FEW
[2025-01-22 11:33] LABS: ERYTHROCYTE SEDIMENTATION RATE 43 mm/hr (0-30)
[2025-01-22 11:46] LABS: FOLIC ACID (FOLATE) SERUM > 20.00 ng/mL (>5.38)
[2025-01-24 09:09] LABS: *T3 UPTAKE 26 % (24-39); CANCER ANTIGEN 125 12.6 U/mL (0.0-38.1); CARCINOEMBRYONIC AG - SEND OUT 2.5 ng/mL (0.0-4.7)
[2025-01-27 10:11] LABS: ANTI-DNA DOUBLE STRANDED QUANT 3 IU/mL (0-9); ANTI-NUCLEAR ANTIBODIES DIRECT Negative (Negative)
== END | disposition home or self-care (01) ==
LOC: LAB 09:34
PROVIDERS: ATTEND Internal Medicine Geriatric Medicine
DX: E11.69 Type 2 diabetes mellitus with other specified complication (principal); E83.39 Other disorders of phosphorus metabolism; R63.4 Abnormal weight loss; Z00.01 Encounter for general adult medical examination with abnormal findings
CPT/HCPCS: 36415; 80053; 80061; 81001; 81003; 82378; 82550; 82746; 83036; 83540; 83550; 84100; 84439; 84479; 84550; 84702; 85025; 85651; 86038; 86225; 86304; 86592